=== PATIENT | male | born 1995 | race Caucasian/White ===

== ENCOUNTER 2020-02-28 12:27 | Emergency (ER) | payer BC ==
[2020-02-28 12:37] VITALS: BP 140/88
--- NOTE | 2020-02-28 13:05 | ER Document Report ---
ED Medical Screen (RME) - General Stated Complaint: DIZZINESS,CHEST TIGHTNESS Time Seen by Provider: 02/28/20 13:00 Notes: 25-year-old male presented to the ED for complaint of increasing dizziness and feeling lightheaded. He has sinus congestion feels like he has double vision when he tries to focus on anything. He states he feels off balance. He states today he was in at a car show when he got hot and felt like he was going pass out. He did not drink much water today. He states he has severe pain more to the right than the left. He states he also has chest pain tightness for about the past month and a half. He complains of a headache. He states he had palpitations about a month and a half while he was at work at approximately 15 that lasted about 15 minutes. He does have an appointment with the primary care doctor on Sunday I have greeted and performed a rapid initial assessment of this patient. A comprehensive ED assessment and evaluation of the patient, analysis of test results and completion of medical decision making process will be conducted by an additional ED providers. Physical Exam - Vital signs Vitals: Temp Pulse Resp BP Pulse Ox 97.5 F 85 16 140/88 H 98 02/28/20 12:36 02/28/20 12:36 02/28/20 12:36 02/28/20 12:36 02/28/20 12:36 Course - Vital Signs Vital signs: Temp Pulse Resp BP Pulse Ox 97.5 F 85 16 140/88 H 98 02/28/20 12:36 02/28/20 12:36 02/28/20 12:36 02/28/20 12:36 02/28/20 12:36
[2020-02-28 13:43] LABS: ABSOLUTE MONOCYTES (AUTO) 0.4 10^3/uL (0.1-1.4); EOSINOPHILS % (AUTO) 0.2 % (0-6); RED CELL DISTRIBUTION WIDTH 12.4 % (11.5-14.0); SEGMENTED NEUTROPHILS % (AUTO) 68.6 % (42-78); TOTAL CELLS COUNTED % (AUTO) 100 %
[2020-02-28 13:47] LABS: ABSOLUTE LYMPHOCYTES (AUTO) 1.3 10^3/uL (0.5-4.7); ABSOLUTE NEUT (AUTO) 3.7 10^3/uL (1.7-8.2); BASOPHILS % (AUTO) 0.3 % (0-2); HEMATOCRIT 44.3 % (37.9-51.0); LYMPHOCYTES % (AUTO) 23.4 % (13-45); MEAN CORPUSCULAR HEMOGLOBIN 30.2 pg (27.0-33.4); MEAN CORPUSCULAR VOLUME 84 fl (80-97); MONOCYTES % (AUTO) 7.5 % (3-13); PLATELET COUNT 173 10^3/uL (150-450); RED BLOOD COUNT 5.29 10^6/uL (4.35-5.55); WHITE BLOOD COUNT 5.4 10^3/uL (4.0-10.5)
[2020-02-28 14:00] LABS: ALKALINE PHOSPHATASE 51 U/L (38-126); ANION GAP 8 (5-19); ASPARTATE AMINO TRANSFERASE 23 U/L (17-59); BILIRUBIN,TOTAL 1.7 mg/dL (0.2-1.3); BLOOD UREA NITROGEN 14 mg/dL (7-20); CARBON DIOXIDE 28 mmol/L (22-30); CHLORIDE 102 mmol/L (98-107); GLUCOSE 86 mg/dL (75-110); PHOSPHORUS 3.1 mg/dL (2.5-4.5); POTASSIUM 3.7 mmol/L (3.6-5.0); TOTAL PROTEIN 8.3 g/dL (6.3-8.2)
--- NOTE | 2020-02-28 14:05 | RADIOLOGY REPORT (SQ) ---
EXAM DESCRIPTION: CHEST 2 VIEWS IMAGES COMPLETED DATE/TIME: 02/28/2020 1:54 pm REASON FOR STUDY: chest pain COMPARISON: None. EXAM PARAMETERS: NUMBER OF VIEWS: two views TECHNIQUE: Digital Frontal and Lateral radiographic views of the chest acquired. RADIATION DOSE: NA LIMITATIONS: none FINDINGS: LUNGS AND PLEURA: No opacities, masses or pneumothorax. No pleural effusion. MEDIASTINUM AND HILAR STRUCTURES: No masses or contour abnormalities. HEART AND VASCULAR STRUCTURES: Heart normal size. No evidence for failure. BONES: No acute findings. HARDWARE: None in the chest. OTHER: No other significant finding. IMPRESSION: NO ACUTE RADIOGRAPHIC FINDING IN THE CHEST. TECHNICAL DOCUMENTATION: JOB ID: [id number] 2010 [employer]- All Rights Reserved Reading location - IP/workstation name: [email or web address]
--- NOTE | 2020-02-28 15:08 | ER Document Report ---
ED General - General Chief Complaint: Dizziness Stated Complaint: DIZZINESS,CHEST TIGHTNESS Time Seen by Provider: 02/28/20 13:00 Primary Care Provider: JUVE ROSENBAUM FNP [Primary Care Provider] - Follow up as needed - HPI Notes: 25-year-old male presents with dizziness and episodes of palpitations. Patient states that his symptoms have been occurring for at least the past month and a half, possibly longer. Patient states that a few months ago he had a 15-second episode of palpitations, describes this feeling as though his heart stopped and then started beating hard and fast, it lasted for 15 seconds. He had accompanying lightheadedness. About 1.5 months ago, he had an episode at work w hich was similar, however this episode lasted for 15 minutes, described mainly as his heart racing. He states that he did have some dizziness and room spinning sensation, felt as though he was going to pass out. He states that since this episode happened a 1.5m ago he has had persistent dizziness, described as a room swaying sensation, additionally he states he is always fatigued, he has episodes of chest tightness and headaches as well. This morning he had another episode, occurring at around 10 AM, states that he had not had any food this morning and attended a car show. He suddenly felt his heart rate going fast and hard, he had dizziness and felt like he was going to pass out. He was able to eat and drink something which somewhat improved his symptoms, then a friend drove him to the emergency department. He reports that he has a primary care doctor appointment on Sunday. He states that he has seen cardiology in the past. He has a fingerpad monitor for his heart rhythm which he is able to transmit to the apron operator, he has not had an episode of palpitations since having this monitor. He additionally reports concern that he is congested as he occasionally has sinus and ear pain. He takes allergy medications daily. - Related Data Allergies/Adverse Reactions: No Known Allergies Allergy (Unverified 02/28/20 16:03) Past Medical History - General Information source: Patient - Social History Smoking Status: Never Smoker Family History: Reviewed & Not Pertinent Review of Systems - Review of Systems Constitutional: denies: Fever EENT: Ear pain, Sinus pressure Cardiovascular: Palpitations Respiratory: denies: Short of breath Gastrointestinal: denies: Abdominal pain, Vomiting Genitourinary: No symptoms reported Male Genitourinary: No symptoms reported Musculoskeletal: No symptoms reported Skin: No symptoms reported Hematologic/Lymphatic: No symptoms reported Neurological/Psychological: Headaches Physical Exam - Vital signs Vitals: Temp Pulse Resp BP Pulse Ox 97.5 F 85 16 140/88 H 98 02/28/20 12:36 02/28/20 12:36 02/28/20 12:36 02/28/20 12:36 02/28/20 12:36 Interpretation: Normal - General General appearance: Appears well In distress: None - HEENT Head: Normocephalic, Atraumatic Eyes: Normal Conjunctiva: Normal Pupils: PERRL Tympanic membrane: Other - Both TMs exhibit some dullness and faint fluid level. No erythema or bulging Neck: Normal - Respiratory Breath sounds: Normal - Cardiovascular Rhythm: Regular Heart sounds: Normal auscultation Murmur: No Normal capillary refill: Yes - Abdominal Tenderness: Nontender - Back Back: Normal - Extremities General upper extremity: Normal strength General lower extremity: Normal strength - Neurological Neuro grossly intact: Yes Cognition: Normal Orientation: AAOx4 Speech: Normal Cranial nerves: Normal Cerebellar coordination: Normal Motor strength normal: LUE, RUE, LLE, RLE - Psychological Associated symptoms: Normal affect - Skin Skin Temperature: Warm Course - Re-evaluation Re-evalutation: 25-year-old male with episodes of palpitation and dizziness that have been occurring for 1.5 months, with episode occurring this morning. No true syncopal event. On exam he is well-appearing, his heart is regular rate and rhythm, lungs are clear, EKG does not have any marked abnormalities. He has a nonfocal neuro exam. He does have some dullness to his tympanic membranes, given his description of dizziness potentially could be suffering from vertigo. Would have a low suspicion for intracranial abnormality such as mass, clinically no suspicion for TIA/stroke. He is requesting a CT of his head, will order. Laboratory evaluation was obtained through triage process. Will trial meclizine for his symptoms. Had a long discussion with him about need for follow-up with PCP, he apparently is already seen cardiology and has had a heart monitor in place. 02/28/20 17:09 Labs reviewed, no marked abnormalities. CT head reviewed, no acute intracranial abnormality. Patient reports feeling somewhat improved with meclizine and would like a prescription. Encouraged him to follow-up with his PCP, discuss further outpatient testing. Return precautions given, stable at time of discharge. - Vital Signs Vital signs: Temp Pulse Resp BP Pulse Ox 97.5 F 85 16 140/88 H 98 02/28/20 12:36 02/28/20 12:36 02/28/20 12:36 02/28/20 12:36 02/28/20 12:36 - Laboratory Result Diagrams: 02/28/20 13:29 02/28/20 13:29 Laboratory results interpreted by me: 02/28/20 13:29 Total Bilirubin 1.7 H Total Protein 8.3 H - Diagnostic Test Radiology reviewed: Image reviewed, Reports reviewed - EKG Interpretation by Me Additional EKG results interpreted by me: 02/28/20 17:18 EKG as interpreted by me. Normal sinus rhythm. Intervals within normal limits. Likely early re-pole. Discharge - Discharge Clinical Impression: Episode of dizziness Condition: Stable Disposition: HOME, SELF-CARE Instructions: Vertigo ([facility]) Additional Instructions: Please follow-up with your primary care doctor as discussed, you may discuss further testing such as MRI or Holter monitor. You may use meclizine up to 3 times a day as needed. Drink plenty of fluids. Return to the ED for any concerning or worsening symptoms. Prescriptions: Meclizine HCl [Antivert 25 mg Tablet] 25 mg PO TID PRN #21 tablet PRN Reason: Referrals: JUVE ROSENBAUM FNP [Primary Care Provider] - Follow up as needed
[2020-02-28] MEDS ORDERED: MECLIZINE HCL 25 MG TABLET PO ONE (15:28)
--- NOTE | 2020-02-28 16:46 | RADIOLOGY REPORT (SQ) ---
EXAM DESCRIPTION: CT HEAD WITHOUT IMAGES COMPLETED DATE/TIME: 02/28/2020 4:30 pm REASON FOR STUDY: dizziness x1.5m, eval obvious mass COMPARISON: None. TECHNIQUE: Axial images acquired through the brain without intravenous contrast. Images reviewed wit h bone, brain and subdural windows. Images stored on PACS. All CT scanners at this facility use dose modulation, iterative reconstruction, and/or weight based d osing when appropriate to reduce radiation dose to as low as reasonably achievable (ALARA). [facility]: Dose Right [facility]: CareDose [facility]: Dose Right [facility]: Teradose 4D [facility]: SocialRep RADIATION DOSE: CT Rad equipment meets quality standard of care and radiation dose reduction techniq ues were employed. CTDIvol: 53.2 mGy. DLP: 858 mGy-cm.. LIMITATIONS: None. FINDINGS: VENTRICLES: Normal size and contour. CEREBRUM: No masses. No hemorrhage. No midline shift. Age appropriate white matter. No evidence for a cute infarction. CEREBELLUM: No masses. No hemorrhage. No alteration of density. No evidence for acute infarction. EXTRA-AXIAL SPACES: No fluid collections. ORBITS AND GLOBE: No intra- or extraconal masses. Normal contour of globe without masses. CALVARIUM: No fracture. PARANASAL SINUSES: No fluid or mucosal thickening. SOFT TISSUES: No mass or hematoma. OTHER: No other significant finding. IMPRESSION: NO ACUTE INTRACRANIAL FINDINGS. EVIDENCE OF ACUTE STROKE: NO. TECHNICAL DOCUMENTATION: JOB ID: [id number] [id number] Quality ID # [id number]: Final reports with documentation of one or more dose reduction techniques (e.g., Au tomated exposure control, adjustment of the mA and/or kV according to patient size, use of iterative reconstruction technique) 2010 [employer]- All Rights Reserved Reading location - IP/workstation name: [email or web address]
--- NOTE | 2020-02-28 23:23 | EKG REPORT ---
SEVERITY:- NORMAL ECG - SINUS RHYTHM : Confirmed by: Conor Szymanski MD 28-Feb-2020 23:21:56
== END 2020-02-28 17:38 | disposition home or self-care (01) ==
LOC: ER 12:27
DX: R42 Dizziness and giddiness (principal); R07.9 Chest pain, unspecified; R00.2 Palpitations; R09.81 Nasal congestion; R51 Headache
CPT/HCPCS: 36415; 70450; 71046; 80053; 83735; 84100; 84484; 85025; 93005; 93010; 99285